=== PATIENT | female | born 1990 | race Caucasian/White ===

== ENCOUNTER 2019-06-10 18:31 | Emergency (ER) | payer OTHER | END 2019-06-10 18:56 | disposition home or self-care (01) | LOC: E/R 18:31 | DX: M54.2 Cervicalgia (principal); M54.9 Dorsalgia, unspecified | CPT/HCPCS: 99283; Z7502 ==

== ENCOUNTER 2019-06-14 16:55 | Emergency (ER) | payer OTHER ==
[2019-06-14] MEDS: KETOROLAC 30 MG INJ IM (18:12)
== END 2019-06-14 18:57 | disposition home or self-care (01) ==
LOC: FTE 16:55
DX: M54.5 Low back pain (principal)
CPT/HCPCS: 72100; 81025; 96372; 99284-25